=== PATIENT | male | born 1950 | race Caucasian/White ===

== ENCOUNTER 2016-09-19 13:26 | Outpatient (CLI) | payer OTHER ==
--- NOTE | 2016-09-19 15:41 | DIAGNOSTIC IMAGING REPORT ---
PROCEDURE: MR LUMBAR SPINE W/O CONTRAST INDICATION: LUMBAR DISC DISEASE TECHNIQUE: Noncontrast T1, T2, and STIR sagittal images. T1 and T2 axial images. COMPARISON: Lumbar spine MRI dated the 02/16/2015 FINDINGS: L1-2: Normal. L2-3: There is a diffuse bulge of the annulus at this level. There is a focal disc herniation on the left which is compressing the thecal sac. L3-4: Normal. L4-5: There is a diffuse bulge of the annulus at this level. There is a focal disc herniation on the left which is compressing the thecal sac. L5-S1: Normal. IMPRESSION: 1. L2-3 and L4-5 diffuse bulge of the annulus with focal disc herniation on the left.
== END 2016-09-19 23:00 ==
LOC: MRI SRH 13:26
DX: M46.42 Discitis, unspecified, cervical region (principal); M51.27 Other intervertebral disc displacement, lumbosacral region

== ENCOUNTER 2016-11-05 10:14 | Outpatient (CLI) | payer OTHER ==
--- NOTE | 2016-11-06 08:24 | DIAGNOSTIC IMAGING REPORT ---
PROCEDURE: 2-D M-mode echo Doppler CLINICAL INDICATION: Dyspnea, chest pain TECHNIQUE: Standard 2-D M-mode echo Doppler technique COMPARISON: None available FINDINGS: The aortic valve shows aortic sclerosis no stenosis no aortic insufficiency present. +1 MR is present no stenosis seen. +1 TR present with RVSP 26 +1 PI present. Left and right atrial dimensions normal. LVH present ventricular ejection fraction 70% with normal contraction. Diastolic function is normal. Right ventricular size function and pressure normal The aortic root is enlarged at 4.0 cm no abnormalities of the pericardium present. IMPRESSION: Aortic sclerosis no stenosis +1 TR RVSP 26 +1 MR +1 PI LVH Ejection fraction 70% with normal contraction Mild aortic root enlargement measuring 4.0 cm
--- NOTE | 2016-11-07 10:28 | DIAGNOSTIC IMAGING REPORT ---
PROCEDURE: Single day sestamibi interpretation CLINICAL INDICATION: Chest pain shortness of breath TECHNIQUE: 10 mCi tech sestamibi injected at rest with SPECT tomography performed some time later the patient underwent treadmill testing with 30 mCi of tech sestamibi injected 1-2 minutes prior termination exercise with SPECT tomography then performed rest and stress images were then compared. COMPARISON: None available FINDINGS: For exercise portion of the test please refer to the Internal Medicine dictation. Standard treadmill normal Demonstrated is a left ventricle which is normal in size. With stress no defects are identified similarly during the rest study no defects are apparent. Left Ventricular size function contractility is normal with an ejection fraction of 57%. T.i.d. is normal IMPRESSION: Normal study with no evidence for fixed ischemic defects Normal ventricular size function contractility ejection fraction 57%
== END 2016-11-05 23:00 ==
LOC: US SRH 10:14
PROC: 4A02XM4 Measurement of Cardiac Total Activity, External Approach (ICD-10-PCS; principal; 2016-11-05)
PROC: 3E073KZ Introduction of Other Diagnostic Substance into Coronary Artery, Percutaneous Approach (ICD-10-PCS; principal; 2016-11-05)
DX: R07.9 Chest pain, unspecified (principal); R06.00 Dyspnea, unspecified